=== PATIENT | female | born 1995 | race American Indian/Alaskan Native ===

== ENCOUNTER 2017-08-15 18:29 | Emergency (ER) | payer OTHER ==
[2017-08-15 18:58] VITALS: BP 106/63
[2017-08-15] MEDS ORDERED: MOTRIN PO ONE (22:57)
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
== END 2017-08-15 23:05 | disposition home or self-care (01) ==
LOC: ED 18:29
DX: S00.91XA Abrasion of unspecified part of head, initial encounter (principal); F17.200 Nicotine dependence, unspecified, uncomplicated; V49.9XXA Car occupant (driver) (passenger) injured in unspecified traffic accident, initial encounter; Y93.89 Activity, other specified; Y92.411 Interstate highway as the place of occurrence of the external cause; Y99.8 Other external cause status
CPT/HCPCS: 99282